=== PATIENT | female | born 1970 | race American Indian/Alaskan Native ===

== ENCOUNTER 2019-01-26 08:31 | Emergency (ER) | payer MEDICAID, OTHER ==
[2019-01-26 08:39] VITALS: BP 153/89
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
== END 2019-01-26 10:27 | disposition home or self-care (01) ==
LOC: ED 08:31
DX: M79.672 Pain in left foot (principal); J45.909 Unspecified asthma, uncomplicated; Z98.51 Tubal ligation status; Z79.899 Other long term (current) drug therapy; Z88.2 Allergy status to sulfonamides

== ENCOUNTER 2019-10-19 07:25 | Emergency (ER) | payer MEDICAID, OTHER ==
[2019-10-19 07:36] VITALS: BP 149/82
[2019-10-19] MEDS ORDERED: IBUPROFEN 800 MG TAB PO ONE (08:33)
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
== END 2019-10-19 09:24 | disposition home or self-care (01) ==
LOC: ED 07:25
DX: S13.4XXA Sprain of ligaments of cervical spine, initial encounter (principal); S39.012A Strain of muscle, fascia and tendon of lower back, initial encounter; J45.909 Unspecified asthma, uncomplicated; Z98.51 Tubal ligation status; V49.49XA Driver injured in collision with other motor vehicles in traffic accident, initial encounter; Y93.89 Activity, other specified; Y92.488 Other paved roadways as the place of occurrence of the external cause; Y99.8 Other external cause status
CPT/HCPCS: 72040; 72100

== ENCOUNTER 2019-11-17 17:26 | Emergency (ER) | payer OTHER, MEDICAID ==
[2019-11-17] MEDS ORDERED: traMADol 50 MG TAB PO ONE (19:31)
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
[2019-11-17 21:26] VITALS: BP 163/90
== END 2019-11-17 21:30 | disposition home or self-care (01) ==
LOC: ED 17:26
DX: S39.012A Strain of muscle, fascia and tendon of lower back, initial encounter (principal); S16.1XXA Strain of muscle, fascia and tendon at neck level, initial encounter; I10 Essential (primary) hypertension; J45.909 Unspecified asthma, uncomplicated; Z98.51 Tubal ligation status; Z88.2 Allergy status to sulfonamides; Z79.899 Other long term (current) drug therapy; V49.59XA Passenger injured in collision with other motor vehicles in traffic accident, initial encounter; Y93.89 Activity, other specified; Y92.410 Unspecified street and highway as the place of occurrence of the external cause; Y99.8 Other external cause status
CPT/HCPCS: 72040; 72100